=== PATIENT | female | born 1940 | race Caucasian/White ===

== ENCOUNTER 2016-10-19 13:10 | Inpatient (IN) ==
--- NOTE | 2016-10-19 13:19 | Emergency Department Note ---
Disposition Clinical Impression: Hypoxemia, Frail elderly, History of pulmonary embolus (PE), Anemia, Dyspnea on exertion, Hiatal hernia, Abnormal chest CT, History of breast cancer Disposition: Admitted As Inpatient Referrals: Augie Ramirez MD [Primary Care Provider] - Forms: ED Satisfaction Letter General Adult HPI - General Chief complaint: ED Shortness of Breath/Dyspnea Stated complaint: Weak / Low O2 Saturation Time Seen by Provider: 10/19/16 13:19 - History of Present Illness HPI Narrative: 76-year-old female reports emergency department complaining of shortness of breath. She usually requires 2 L of oxygen at home to maintain an oxygen saturation in the high 80s. She reports her oxygen saturation is been down in the 70s. On arrival to the ED her oxygen saturation was 79% on her usual 2 L requirement. The patient reports weakness and progressive dyspnea, she is also describing recurrent chest pain. She states she was recently on the hospital and had a stress test which she tells me was negative. She also states there was some consideration for heart catheter at some point. The patient has no known history of CAD, she denies any lung problems. She reports her oxygen levels are low chronically but much worse now, she has a history of malignancy and asthma. She has had a chronic cough. No coughing of blood. No leg swelling or pain or syncope. She has a remote history of PE status post hysterectomy, she was previously anticoagulated but is currently not anticoagulated. There is no history of vomiting diarrhea abdominal pain confusion or any trouble walking talking hearing seeing or speaking. No fevers rashes or urinary symptoms. There is no history of acute back pain. The patient describes progressive shortness of breath, she has recurrent chest pain as well is not well defined. There is no history of radiating pain to the jaws or arms. - Related Data Home Medications Medication Instructions Recorded Confirmed Albuterol Sulfate [Proair Hfa] 2 puff IH Q4H PRN 10/05/16 10/19/16 Aspirin 81 mg PO DAILY 10/05/16 10/19/16 Cholecalciferol (Vitamin D3) 5,000 unit PO DAILY 10/05/16 10/19/16 [Vitamin D3] Isosorbide MONOnitrate (24 HR) 30 mg PO DAILY 10/05/16 10/19/16 [Imdur] Levothyroxine Sodium [Levoxyl] 150 mcg PO QAM 05/25/17 06/08/17 Metoprolol XL (24 HR) Succ [Toprol 25 mg PO DAILY 10/05/16 10/19/16 XL] Oxygen 2 l NS CONT 10/19/16 10/19/16 Allergies Allergy/AdvReac Type Severity Reaction Status Date / Time promethazine Allergy See Verified 09/29/15 13:23 Comments All systems ED: reviewed and negative except as stated. Past Medical History - Past Medical History Medical history: Reports: arthritis, asthma, cancer, GERD, kidney stones, thyroid disease Surgical history: Reports: breast surgery, hysterectomy - Social History Smoking Status: Never smoker Smokeless Tobacco Status: No Alcohol use: Reports: none Drug use: Reports: none Physical Exam - General Limitations: no limitations General appearance: alert, in no apparent distress - Head Head exam: atraumatic, normocephalic, normal inspection - Eye Eye exam: Present: normal appearance, PERRL, EOMI - ENT ENT exam: normal exam, normal oropharynx, mucous membranes moist - Neck Neck exam: Present: normal inspection, full ROM, trachea midline - Chest Chest inspection: Present: symmetric chest wall rise. Absent: tenderness - Respiratory Respiratory exam: Present: normal lung sounds bilaterally. Absent: respiratory distress, wheezes, stridor, accessory muscle use, prolonged expiratory phase - Cardiovascular Cardiovascular exam: Present: regular rate, normal rhythm, normal heart sounds - Abdominal Exam Abdominal exam: Present: soft, Non-Tender, normal bowel sounds. Absent: tenderness, distention, guarding, rebound, rigidity, pulsatile mass - Rectal Exam Waste Oil Pumper present during exam: Yes Rectal exam: Present: normal rectal tone, black stool, hemorrhoids - Extremities Exam Extremities exam: Present: normal inspection, full ROM, normal capillary refill. Absent: tenderness, pedal edema, joint swelling, calf tenderness - Expanded Lower Extremity Exam Lower leg exam: Absent: Homans' sign Neurovascular/Tendon exam: Present: normal capillary refill. Absent: pulse deficit, motor deficit, sensory deficit, tendon deficit, extremity cold to touch , pallor - Back Exam Back exam: Present: normal inspection, full ROM. Absent: tenderness, CVA tenderness (R), CVA tenderness (L), vertebral tenderness - Neurological Exam Neurological exam: Present: alert, oriented X3, CN II-XII intact. Absent: motor sensory deficit - Psychiatric Psychiatric exam: Present: normal affect, normal mood - Skin Skin exam: Present: warm, dry, intact, normal color. Absent: rash, cyanosis, diaphoresis, erythema, pallor, mottled Course Vital Signs Temperature 97.8 F 10/19/16 13:16 Pulse Rate 89 10/19/16 13:16 Respiratory Rate 22 10/19/16 13:16 Blood Pressure 146/58 10/19/16 13:16 O2 Sat by Pulse Oximetry 100 10/19/16 13:16 Temperature 97.8 F 10/19/16 13:16 Pulse Rate 74 10/19/16 16:02 Respiratory Rate 18 10/19/16 16:02 Blood Pressure 125/53 10/19/16 16:02 O2 Sat by Pulse Oximetry 96 10/19/16 16:02 Oxygen Delivery Oxygen Delivery Nasal Cannula Medical Decision Making - [facility] Narrative Medical decision making narrative: The patient is elderly, dyspneic on exertion, with hypoxemia on 2 L at 79%, her hemoglobin is noted to be 3.9, rectal exam showed black material but the lab reports a negative Hemoccult. Protonix was given IV, transfusion was ordered. The patient appears to be stable. Based on her age, significant lab abnormality /hemoglobin 3.9, dyspnea and hypoxemia, I thought it would be appropriate to admit the patient hospital. Her lactic acid is negative. She does not have a fever or an elevated white count. Her chest CT shows changes which could be atelectatic versus infectious. Blood cultures were sent. Levaquin was ordered. Aspirin was initially ordered. The patient has a history of PE, she had describes some intermittent chest pain which has not radiated to the jaw or neck.. Her recent stress test appeared to show an abnormality, her EKG and cardiac enzymes are nonacute. She has not complained of chest pain in the ED. The patient appears to be stable. I discussed the case with the hospitalist who has accepted the patient to their care. A second CBC was ordered to evaluate hemoglobin status, recheck. The patient is not tachycardic or hypotensive and appears to be stable. - Lab Data Lab results reviewed: Yes I reviewed the patient's lab results. Result diagrams: 10/19/16 13:53 10/19/16 13:53 Lab Results 10/19/16 10/19/16 10/19/16 Range/Units 13:53 13:53 13:53 WBC 7.5 (4.3-11.1) K/mcL RBC 2.24 L (3.82-4.97) M/mcL Hgb 3.9 L* (11.5-15.4) g/dL Hct 15.0 L* (35.3-44.9) % MCV 67.0 L (83.0-100.0) fL MCH 17.4 L (28.0-33.3) pg MCHC 26.0 L (31.6-35.5) g/dL RDW 22.6 H (11.5-14.5) % Plt Count 253 (140-400) K/mcL MPV 10.6 (9.4-12.4) fL Seg Neutrophils % 88.0 % Band Neutrophils % 2.0 (0-4) % Lymphocytes % 6.0 % Monocytes % 4.0 % Neutrophils # 6.8 (1.6-8.9) K/mcL Lymphocytes # 0.5 L (0.6-4.6) K/mcL Monocytes # 0.3 (0.0-1.3) K/mcL Nucleated RBCs/100 WBC 0.3 H (0) /100 WBC Platelet Estimate Normal (Normal) Polychromasia 1+ A (Not Present) Hypochromasia Present A (Not Present) Anisocytosis 2+ A (Not Present) Microcytosis Present A (Not Present) PT (9.4-12.1) Seconds INR APTT (26.0-36.0) Seconds Sodium 141 (136-145) mEq/L Potassium 4.6 H (3.5-4.5) mEq/L Chloride 104 (98-109) mEq/L Carbon Dioxide 33 H (19-29) mEq/L BUN 21 H (7-20) mg/dL Creatinine 0.83 (0.57-1.11) mg/dL Est GFR ( Amer) > 60 (> 60) Est GFR (Non-Af Amer) > 60 (> 60) BUN/Creatinine Ratio 25 (6-26) Glucose 107 H (70-99) mg/dL Calculated Osmolality 295 (280-300) Lactic Acid 1.1 (0.5-2.2) mmol/L Calcium 8.5 L (8.6-10.8) mg/dL Total Bilirubin 0.4 (0.2-1.2) mg/dL Direct Bilirubin 0.2 (0.0-0.5) mg/dL Indirect Bilirubin 0.2 (0.0-1.2) mg/dL AST 12 (5-34) Units/L ALT 8 (0-55) Units/L Alkaline Phosphatase 74 (38-126) Units/L Troponin I (0-0.03) ng/mL C-Reactive Protein 9 H (Less than 5) mg/L B-Natriuretic Peptide (0-100) pg/mL Serum Total Protein 6.4 (6.0-8.3) g/dL Albumin 3.1 L (3.5-5.0) g/dL Globulin 3.3 (2.4-3.5) g/dL Albumin/Globulin Ratio 0.9 L (1.1-2.2) Stool Occult Blood (Negative) 10/19/16 10/19/16 10/19/16 Range/Units 13:53 13:53 15:17 WBC (4.3-11.1) K/mcL RBC (3.82-4.97) M/mcL Hgb (11.5-15.4) g/dL Hct (35.3-44.9) % MCV (83.0-100.0) fL MCH (28.0-33.3) pg MCHC (31.6-35.5) g/dL RDW (11.5-14.5) % Plt Count (140-400) K/mcL MPV (9.4-12.4) fL Seg Neutrophils % % Band Neutrophils % (0-4) % Lymphocytes % % Monocytes % % Neutrophils # (1.6-8.9) K/mcL Lymphocytes # (0.6-4.6) K/mcL Monocytes # (0.0-1.3) K/mcL Nucleated RBCs/100 WBC (0) /100 WBC Platelet Estimate (Normal) Polychromasia (Not Present) Hypochromasia (Not Present) Anisocytosis (Not Present) Microcytosis (Not Present) PT (9.4-12.1) Seconds INR APTT (26.0-36.0) Seconds Sodium (136-145) mEq/L Potassium (3.5-4.5) mEq/L Chloride (98-109) mEq/L Carbon Dioxide (19-29) mEq/L BUN (7-20) mg/dL Creatinine (0.57-1.11) mg/dL Est GFR ( Amer) (> 60) Est GFR (Non-Af Amer) (> 60) BUN/Creatinine Ratio (6-26) Glucose (70-99) mg/dL Calculated Osmolality (280-300) Lactic Acid (0.5-2.2) mmol/L Calcium (8.6-10.8) mg/dL Total Bilirubin (0.2-1.2) mg/dL Direct Bilirubin (0.0-0.5) mg/dL Indirect Bilirubin (0.0-1.2) mg/dL AST (5-34) Units/L ALT (0-55) Units/L Alkaline Phosphatase (38-126) Units/L Troponin I 0.00 (0-0.03) ng/mL C-Reactive Protein (Less than 5) mg/L B-Natriuretic Peptide 168 H (0-100) pg/mL Serum Total Protein (6.0-8.3) g/dL Albumin (3.5-5.0) g/dL Globulin (2.4-3.5) g/dL Albumin/Globulin Ratio (1.1-2.2) Stool Occult Blood Negative (Negative) 10/19/16 Range/Units 15:46 WBC (4.3-11.1) K/mcL RBC (3.82-4.97) M/mcL Hgb (11.5-15.4) g/dL Hct (35.3-44.9) % MCV (83.0-100.0) fL MCH (28.0-33.3) pg MCHC (31.6-35.5) g/dL RDW (11.5-14.5) % Plt Count (140-400) K/mcL MPV (9.4-12.4) fL Seg Neutrophils % % Band Neutrophils % (0-4) % Lymphocytes % % Monocytes % % Neutrophils # (1.6-8.9) K/mcL Lymphocytes # (0.6-4.6) K/mcL Monocytes # (0.0-1.3) K/mcL Nucleated RBCs/100 WBC (0) /100 WBC Platelet Estimate (Normal) Polychromasia (Not Present) Hypochromasia (Not Present) Anisocytosis (Not Present) Microcytosis (Not Present) PT 14.3 H (9.4-12.1) Seconds INR 1.3 APTT 27.9 (26.0-36.0) Seconds Sodium (136-145) mEq/L Potassium (3.5-4.5) mEq/L Chloride (98-109) mEq/L Carbon Dioxide (19-29) mEq/L BUN (7-20) mg/dL Creatinine (0.57-1.11) mg/dL Est GFR ( Amer) (> 60) Est GFR (Non-Af Amer) (> 60) BUN/Creatinine Ratio (6-26) Glucose (70-99) mg/dL Calculated Osmolality (280-300) Lactic Acid (0.5-2.2) mmol/L Calcium (8.6-10.8) mg/dL Total Bilirubin (0.2-1.2) mg/dL Direct Bilirubin (0.0-0.5) mg/dL Indirect Bilirubin (0.0-1.2) mg/dL AST (5-34) Units/L ALT (0-55) Units/L Alkaline Phosphatase (38-126) Units/L Troponin I (0-0.03) ng/mL C-Reactive Protein (Less than 5) mg/L B-Natriuretic Peptide (0-100) pg/mL Serum Total Protein (6.0-8.3) g/dL Albumin (3.5-5.0) g/dL Globulin (2.4-3.5) g/dL Albumin/Globulin Ratio (1.1-2.2) Stool Occult Blood (Negative) - Radiology Data Radiology results reviewed: Yes I reviewed the patient's radiology results.
[2016-10-19 14:04] LABS: Nucleated Red Blood Cells 0.3 /100 WBC (0); Red Cell Distribution Width 22.6 % (11.5-14.5)
[2016-10-19 14:05] LABS: Mean Corpuscular Hemoglobin 17.4 pg (28.0-33.3); Mean Platelet Volume 10.6 fL (9.4-12.4); Platelet Count 253 K/mcL (140-400); Red Blood Count 2.24 M/mcL (3.82-4.97)
[2016-10-19 14:29] LABS: Alanine Aminotransferase 8 Units/L (0-55); Albumin 3.1 g/dL (3.5-5.0); Albumin/Globulin Ratio 0.9 (1.1-2.2); Alkaline Phosphatase 74 Units/L (38-126); Aspartate Amino Transferase 12 Units/L (5-34); BUN/Creatinine Ratio 25 (6-26); Bilirubin,Direct 0.2 mg/dL (0.0-0.5); Bilirubin,Indirect 0.2 mg/dL (0.0-1.2); Bilirubin,Total 0.4 mg/dL (0.2-1.2); Blood Urea Nitrogen 21 mg/dL (7-20); Calcium 8.5 mg/dL (8.6-10.8); Carbon Dioxide 33 mEq/L (19-29); Chloride 104 mEq/L (98-109); Globulin 3.3 g/dL (2.4-3.5); Glucose 107 mg/dL (70-99); Osmolality,Calculated 295 (280-300); Sodium 141 mEq/L (136-145); Total Protein 6.4 g/dL (6.0-8.3); eGFR For African Americans > 60 (> 60); eGFR For Non-African Americans > 60 (> 60)
[2016-10-19 14:31] LABS: Potassium 4.6 mEq/L (3.5-4.5)
[2016-10-19] MEDS ORDERED: Aspirin 325 MG TABLET PO ONE (14:32)
[2016-10-19 14:46] LABS: Hemoglobin 3.9 g/dL (11.5-15.4)
[2016-10-19] MEDS ORDERED: Pantoprazole 40 MG VIAL IVP ONE (15:17)
[2016-10-19 15:30] LABS: C-Reactive Protein 9 mg/L (Less than 5)
[2016-10-19 15:43] LABS: Lymphocytes # 0.5 K/mcL (0.6-4.6); Monocytes # 0.3 K/mcL (0.0-1.3); Neutrophils # 6.8 K/mcL (1.6-8.9)
[2016-10-19 15:44] LABS: Anisocytosis 2+ (Not Present); Hypochromasia Present (Not Present); Microcytosis Present (Not Present); Platelet Estimate Normal (Normal)
[2016-10-19 15:45] LABS: Polychromasia 1+ (Not Present)
[2016-10-19 16:01] LABS: INR 1.3; Prothrombin Time 14.3 Seconds (9.4-12.1)
[2016-10-19] MEDS: Pantoprazole 40 MG in 0.9 % Sodium Chloride Mini Bag 100 ML IVC SCH ×2 (16:01→21:05)
[2016-10-19] MEDS ORDERED: Levofloxacin 750 MG/150 ML 750 MG/150 ML BAG IVPB ONE (16:02)
[2016-10-19 16:04] LABS: Activated Partial Thrombo Time 27.9 Seconds (26.0-36.0)
--- NOTE | 2016-10-19 16:50 | Electrocardiograph Report ---
[facility] Test Date: 2016-10-19 Pat Name: Janis Hernandez Department: 104 Room: 2N03 Gender: F Radiology Scheduler: DARRIAN : 1940 Requested By: Angel White Order Number: [id number] Reading MD: Augie Ramirez MD Measurements Intervals [place] Rate: 73 P: 58 NM: 133 QRS: 3 QRSD: 85 T: 26 QT: 383 QTc: 409 Interpretive Statements SINUS RHYTHM Electronically Signed On 10-19-2016 16:48:22 EDT by Augie Ramirez MD
[2016-10-19 16:53] LABS: Hematocrit 15.1 % (35.3-44.9); Immature Reticulocyte % 5.3 % (11.0-38.0); Mean Corpuscular HGB Conc 25.2 g/dL (31.6-35.5); Mean Corpuscular Hemoglobin 16.7 pg (28.0-33.3); Mean Corpuscular Volume 66.5 fL (83.0-100.0); Mean Platelet Volume 10.3 fL (9.4-12.4); Platelet Count 238 K/mcL (140-400); Red Blood Count 2.27 M/mcL (3.82-4.97); Red Cell Distribution Width 22.7 % (11.5-14.5); Retculocyte # 0.04 M/mcL (0.05-0.10); Reticulocyte % 1.9 % (1.6-2.8)
[2016-10-19 16:57] LABS: Hemoglobin 3.8 g/dL (11.5-15.4)
[2016-10-19] MEDS ORDERED: 0.9 % Sodium Chloride 250 ML ONE (17:26)
[2016-10-19 17:40] LABS: Folate 15.8 ng/mL (7.0-31.4)
[2016-10-19] MEDS ORDERED: Naloxone 0.4 MG/ML INJ IVP PRN (19:46)
--- NOTE | 2016-10-19 19:59 | Internal Med History&Physical ---
Date of Encounter: 10/19/16 Time of Encounter: 19:57 Assessment and Plan (1) Blood loss anemia Current visit: Yes Status: Acute Hgb 3.9 on arrival. She does report melena for 3 weeks prior to admission. Occult stool negative. Hemodynamically stable no tachycardia no hypertension maintaining mentation. Receive 1 unit PRBC in the ED. No CAD. We will transfuse a total of 4 units. Monitor H&H and transfuse for Hgb less than 7. Clear liquid diets, IV PPI. Iron studies, LDH, Hannah test, retic count, B12 and folate pending. (2) Chronic respiratory failure Current visit: Yes Status: Acute Wears O2 at home. Is in the process of outpatient workup. Presented with shortness of breath that worsened on day of admission. Chest CTA negative chest x-ray nonacute. Suspect component of COPD however no evidence of exacerbation. Also anemia likely contributing to his well. Continue home O2, aggressive I-S, wean as able. Can follow up as outpatient as previously planned. Qualifiers: Respiratory failure complication: hypoxia Qualified Code(s): J96.11 - Chronic respiratory failure with hypoxia (3) Essential hypertension Current visit: Yes Status: Acute Per history. BP soft/borderline. Holding home BP medications. Resume when able. (4) DVT prophylaxis Current visit: Yes Status: Acute SCD Internal Medicine - H&P: HPI Chief complaint: Shortness of breath Admitted From: Home History of present illness: Ms. Hernandez is a 76 year old female with past medical history hypertension and chronic respiratory failure on O2 at home who presented to [facility] on 10/19/2016 with complaints of shortness of breath. She was found to be hypoxic with saturations at 79% while on O2. She was also found to be anemic with Hgb 3.9. She was admitted for blood transfusion and GI consultation. Information obtained from chart review and patient report per patient she has been short of breath for the past couple months now requiring O2. Says she woke up this morning was more short of breath about palpitations. She has noticed dark stools over the past couple weeks but that this is related to her heart medication. Still with some shortness of breath all my exam but says she feels better. No chest pain no abdominal pain and nausea vomiting or diarrhea. Denies EtOH use no NSAID use no recent use of steroids. Past Med Surg Social Fam HX - Past Medical History Medical history: arthritis, asthma, cancer, GERD, kidney stones, thyroid disease - Past Surgical History Surgical History: breast surgery, hysterectomy - Social History Smoking Status: Never smoker Smokeless Tobacco Status: No Alcohol use: none Drug use: none Internal Medicine - H&P: Meds Albuterol Sulfate [Proair Hfa] 2 puff IH Q4H PRN 10/05/16 [History] Aspirin 81 mg PO DAILY 10/05/16 [History] Cholecalciferol (Vitamin D3) [Vitamin D3] 5,000 unit PO DAILY 10/05/16 [History] Isosorbide MONOnitrate (24 HR) [Imdur] 30 mg PO DAILY 10/05/16 [History] Levothyroxine Sodium [Levoxyl] 150 mcg PO QAM 10/05/16 [History] Metoprolol XL (24 HR) Succ [Toprol XL] 25 mg PO DAILY 10/05/16 [History] Oxygen 2 l NS CONT 10/19/16 [History] Allergies promethazine Allergy (Verified 09/29/15 13:23) See Comments unknown All Systems PM: A 10-system review of systems was performed and is negative for pertinent findings except as documented above in the HPI. - Constitutional Constitutional: no chills, no fever(s), no night sweats - EENT Eyes: no change in vision, no discharge, no pain, no photophobia Ears: no ear discharge, no ear pain, no tinnitus Nose, mouth and throat: no dysphagia, no nasal discharge, no neck pain, no sore throat - Cardiovascular Cardiovascular ROS IM: no chest pain, no diaphoresis, no dyspnea, no lightheadedness, no palpitations, no syncope - Respiratory Respiratory: dyspnea on exertion, no cough, no dyspnea, no wheezing, no excessive phlegm production - Gastrointestinal Gastrointestinal: melena, no abdominal pain, no diarrhea, no hematemesis, no hematochezia, no nausea, no vomiting - Genitourinary Genitourinary: no change in urinary stream, no dysuria, no flank pain, no hematuria - Musculoskeletal Musculoskeletal ROS IM: no numbness, no tingling - Integumentary Integumentary IM: no rash, no unusual bruising - Neurological Neurological ROS: no confusion, no convulsions, no focal weakness, no numbness, no tingling, no tremor(s) - Hematologic/Lymphatic Hematologic/Lymphatic: no easy bruising - Constitutional Vitals: Temp Pulse Resp BP Pulse Ox 98.5 F 73 18 125/46 96 10/19/16 18:09 10/19/16 19:54 10/19/16 19:54 10/19/16 19:54 10/19/16 19:54 - Head Head exam: Present: atraumatic, normocephalic - Eye Eye exam: Present: PERRL, conjuntiva pink, sclera anicteric Pupils: Present: PERRL - Neck Neck exam general surgery: Present: supple, trachea midline. Absent: lymphadenopathy - Respiratory Respiratory exam: Present: CTAB. Absent: accessory muscle use, rales, rhonchi, wheezes - Cardiovascular Cardiovascular exam: Present: RRR, +S1, +S2. Absent: diastolic murmur, gallop, rubs, systolic murmur - GI/Abdominal GI/Abdominal exam: Present: normal bowel sounds, soft, no peritoneal signs. Absent: distended, tenderness - Extremities Exam Extremities exam: Present: warm, radial pulses palpable and symetrical. Absent : calf tenderness, cyanotic, pedal edema - Neurological Exam Neurological exam: Present: CN II-XII intact, oriented X3, no focal deficits. Absent: pronater drift, facial droop, speech deficit - Skin Skin exam: Present: dry, intact Internal Med - H&P Results - Labs CBC & Chem 7: 10/19/16 16:43 10/19/16 13:53 Labs: Short CBC 10/19/16 Range/Units 16:43 WBC 6.8 (4.3-11.1) K/mcL Hgb 3.8 L* (11.5-15.4) g/dL Hct 15.1 L (35.3-44.9) % Plt Count 238 (140-400) K/mcL
[2016-10-19 22:46] LABS: Bilirubin,Urine Negative (Negative); Blood,Urine Negative (Negative); Clarity,Urine Clear (Clear); Color,Urine Yellow (Yellow); Glucose,Urine (UA) Normal (Normal); Ketones,Urine Negative (Negative); Leukocyte Esterase,Urine Trace (Negative); Nitrite,Urine Positive (Negative); Protein,Urine Negative (Neg-Trace); Specific Gravity,Urine 1.015 (1.010-1.025); Urobilinogen,Urine Normal (Normal)
[2016-10-19 22:54] LABS: Squamous Epithelial Cell,Urine Few per lpf (None-Few)
[2016-10-19 22:56] LABS: Bacteria,Urine Many per hpf (None-Few)
[2016-10-20] MEDS: Pantoprazole 40 MG in 0.9 % Sodium Chloride Mini Bag 100 ML IVC SCH ×6 (02:30→22:15)
[2016-10-20 03:03] LABS: Thyroid Stimulating Hormone 10.046 mcIU/mL (0.350-4.840)
--- NOTE | 2016-10-20 08:31 | Gastroenterology Consult Note ---
<Kristen York - Last Filed: 10/20/16 10:34> Date of Encounter: 10/20/16 Time of Encounter: 10:07 - Assessment and plan (1) Melena Current Visit: Yes Status: Acute Assessment and plan: EGD today to r/o esophagitis, gastritis, duodenitis, PUD, MW tear, tumor, polyp , AVMs, varices. (2) Anemia Current Visit: Yes Status: Acute Assessment and plan: Monitor and transfuse as appropriate. INR 1.3, currently hgb 3.8, will delroy as she has received 3 units PRBC. Qualifiers: Anemia type: iron deficiency Iron deficiency anemia type: unspecified iron deficiency Qualified Code(s): D50.9 - Iron deficiency anemia, unspecified (3) Chronic respiratory failure Current Visit: Yes Status: Chronic Assessment and plan: Oxygen dependent Qualifiers: Respiratory failure complication: hypoxia Qualified Code(s): J96.11 - Chronic respiratory failure with hypoxia - Time Spent With Patient Total time spent is greater than 50% in coordination of care (as documented) at patient's floor/unit and/or counseling patient: less than 15 minutes GI History of Present Illness - Data of Consult Patient: new to practice Consult date: 10/20/16 Requesting Physician: Eder Bhardwaj - Consult Narrative Reason for consult: Melena History of present illness: Ms. Hernandez is a 76 year old female with a PMH significant for HTN and chronic respiratory failure, oxygen dependent 2L. She presented to [facility] on 10/19/2016 with complaints of shortness of breath. She was found to be hypoxic with saturations at 79% while on O2. She was also found to be anemic with Hgb 3.9. She was admitted for blood transfusion and GI consultation. Information obtained from chart review and patient report per patient she has been short of breath for the past couple months now requiring O2. Says she woke up this morning was more short of breath about palpitations. She has noticed dark stools over the past couple weeks but that this is related to her heart medication. Still with some shortness of breath all my exam but says she feels better. Denies EtOH use no NSAID use no recent use of steroids. Hemoccult testing was negative. Patient reports daily BM, for a couple of weeks very dark in color, denies BRBPR. Some nausea, no vomiting. Denies abdominal pain. Her biggest presenting symptom was dyspnea. Colonoscopy: 11/2015 - [facility] - diverticulosis EGD: 11/2015 - [facility] - large hiatal hernia Past Med Surg Social Fam HX - Past Medical History Medical history: arthritis, asthma, cancer, GERD, kidney stones, thyroid disease - Past Surgical History Surgical History: breast surgery, hysterectomy - Social History Smoking Status: Never smoker Smokeless Tobacco Status: No Alcohol use: none Drug use: none - Gastrointestinal NSAID use: asa Anticoagulation Use: None Number of BM Per Day: 1 Gastrointestinal: Present: melena, nausea - Constitutional Constitutional: fatigue - EENT Eyes: as per HPI Ears: Present: as per HPI Nose, mouth and throat: Present: as per HPI - Cardiovascular Cardiovascular ROS: Present: as per HPI - Respiratory Respiratory IM: Present: dyspnea - Neurological ROS Neurological GI: Present: weakness - Hematologic/Lymphatic Hematologic/Lymphatic pediatric: Present: as per HPI - Musculoskeletal Musculoskeletal ROS GI: Present: as per HPI - Integumentary Integumentary GI: Present: jaundice, as per HPI - Psychiatric ROS Psychiatric GI: Present: as per HPI - Endocrine Endocrine IM: Present: as per HPI - Constitutional Vitals: Temp Pulse Resp BP Pulse Ox 98.0 F 68 17 115/48 93 10/20/16 07:15 10/20/16 07:15 10/20/16 07:15 10/20/16 07:15 10/20/16 07:15 General appearance: Present: cooperative, A&O X 3, no acute distress, answers questions appropriately - Head Head exam: Present: atraumatic, normocephalic - Eye Eye exam: Present: normal appearance, sclera anicteric - ENT ENT exam: Present: mucous membranes moist - Neck Neck exam general surgery: Present: normal inspection, trachea midline - Respiratory Respiratory exam: Present: CTAB - Cardiovascular Cardiovascular exam: Present: RRR, +S1, +S2 - GI/Abdominal GI/Abdominal exam: Present: normal bowel sounds, soft, no peritoneal signs - Rectal Rectal exam: Present: deferred - Extremities Exam Extremities exam: Present: warm - Neurological Exam Neurological exam: Present: no focal deficits - Psychiatric Psychiatric exam: Present: normal affect, normal mood - Skin Skin exam: Present: dry, intact, normal color, warm Results - Labs CBC & Chem 7: 10/20/16 08:39 10/20/16 08:39 Labs: Last Result Calcium 8.5 mg/dL (8.6-10.8) L 10/19/16 13:53 Iron 12 mcg/dL (50-170) L 10/19/16 13:53 % Saturation 2 % (15-50) L 10/19/16 13:53 Transferrin 353 mg/dL (180-382) 10/19/16 13:53 Ferritin 5 ng/ml (5-204) 10/19/16 13:53 Troponin I 0.00 ng/mL (0-0.03) 10/19/16 13:53 C-Reactive Protein 9 mg/L (Less than 5) H 10/19/16 13:53 Vitamin B12 344 pg/mL (213-816) 10/19/16 16:43 Folate 15.8 ng/mL (7.0-31.4) 10/19/16 16:43 Stool Occult Blood Negative (Negative) 10/19/16 15:17 Entire Visit Hgb 3.8 g/dL (11.5-15.4) L* 10/19/16 16:43 Hct 15.1 % (35.3-44.9) L 10/19/16 16:43 PT 14.3 Seconds (9.4-12.1) H 10/19/16 15:46 Ferritin 5 ng/ml (5-204) 10/19/16 13:53 Total Bilirubin 0.4 mg/dL (0.2-1.2) 10/19/16 13:53 AST 12 Units/L (5-34) 10/19/16 13:53 ALT 8 Units/L (0-55) 10/19/16 13:53 Folate 15.8 ng/mL (7.0-31.4) 10/19/16 16:43 - ABG ABG results: PT/INR, D-dimer PT 14.3 Seconds (9.4-12.1) H 10/19/16 15:46 Consult Discharge Plan - Plan Referrals: Augie Ramirez MD [Primary Care Provider] - <Angel Arizmendi - Last Filed: 10/20/16 12:50> Date of Encounter: 10/20/16 Time of Encounter: 11:00 - Time Spent With Patient Total time spent is greater than 50% in coordination of care (as documented) at patient's floor/unit and/or counseling patient: GI History of Present Illness - Data of Consult Requesting Physician: Eder Bhardwaj - Consult Narrative History of present illness: Ms. Hernandez is a 76 year old female - Constitutional Vitals: Temp Pulse Resp BP Pulse Ox 97.7 F 69 18 124/79 97 10/20/16 12:10 10/20/16 12:10 10/20/16 12:10 10/20/16 12:10 10/20/16 12:10 Results - Labs CBC & Chem 7: 10/20/16 08:39 10/20/16 08:39 Labs: Last Result Calcium 8.3 mg/dL (8.6-10.8) L 10/20/16 08:39 Iron 12 mcg/dL (50-170) L 10/19/16 13:53 % Saturation 2 % (15-50) L 10/19/16 13:53 Transferrin 353 mg/dL (180-382) 10/19/16 13:53 Ferritin 5 ng/ml (5-204) 10/19/16 13:53 Troponin I 0.00 ng/mL (0-0.03) 10/19/16 13:53 C-Reactive Protein 9 mg/L (Less than 5) H 10/19/16 13:53 Vitamin B12 344 pg/mL (213-816) 10/19/16 16:43 Folate 15.8 ng/mL (7.0-31.4) 10/19/16 16:43 Stool Occult Blood Negative (Negative) 10/19/16 15:17 Entire Visit Hgb 6.4 g/dL (11.5-15.4) L D 10/20/16 08:39 Hct 22.3 % (35.3-44.9) L 10/20/16 08:39 PT 14.3 Seconds (9.4-12.1) H 10/19/16 15:46 Ferritin 5 ng/ml (5-204) 10/19/16 13:53 Total Bilirubin 1.1 mg/dL (0.2-1.2) D 10/20/16 08:39 AST 13 Units/L (5-34) 10/20/16 08:39 ALT 8 Units/L (0-55) 10/20/16 08:39 Folate 15.8 ng/mL (7.0-31.4) 10/19/16 16:43 - ABG ABG results: PT/INR, D-dimer PT 14.3 Seconds (9.4-12.1) H 10/19/16 15:46 - Attending Attestation I examined this patient and my medical decision-making was reviewed with the INTERIOR DESIGN DIRECTOR/PA/Advanced Practice Nurse/Resident Physician. I agree with the documented findings, disposition and treatment plan as described except to the extent set forth below.
[2016-10-20 09:03] LABS: Nucleated Red Blood Cells 0.5 /100 WBC (0)
[2016-10-20] MEDS: Iron Polysaccharide Complex 150 MG CAPSULE PO SCH (09:04)
[2016-10-20 09:05] LABS: Basophils % 0.5 %; Eosinophils # 0.1 K/mcL (0.0-0.6); Eosinophils % 1.3 %; Hematocrit 22.3 % (35.3-44.9); Immature Granulocytes % 1.4 % (0-4); Lymphocytes # 0.7 K/mcL (0.6-4.6); Lymphocytes % 10.5 %; Mean Corpuscular HGB Conc 28.7 g/dL (31.6-35.5); Mean Corpuscular Hemoglobin 20.8 pg (28.0-33.3); Mean Platelet Volume 10.5 fL (9.4-12.4); Monocytes # 0.6 K/mcL (0.0-1.3); Neutrophils # 4.8 K/mcL (1.6-8.9); Platelet Count 192 K/mcL (140-400); Red Blood Count 3.07 M/mcL (3.82-4.97); Red Cell Distribution Width 23.9 % (11.5-14.5); Segmented Neutrophils % 76.3 %
[2016-10-20] MEDS: 0.9 % Sodium Chloride 250 ML IVC SCH ×2 (09:05→12:15)
[2016-10-20 09:07] LABS: Hemoglobin 6.4 g/dL (11.5-15.4); Mean Corpuscular Volume 72.6 fL (83.0-100.0)
[2016-10-20 09:17] LABS: Alanine Aminotransferase 8 Units/L (0-55); Albumin 2.9 g/dL (3.5-5.0); Alkaline Phosphatase 74 Units/L (38-126); Aspartate Amino Transferase 13 Units/L (5-34); BUN/Creatinine Ratio 17 (6-26); Blood Urea Nitrogen 13 mg/dL (7-20); Calcium 8.3 mg/dL (8.6-10.8); Carbon Dioxide 32 mEq/L (19-29); Chloride 104 mEq/L (98-109); Glucose 100 mg/dL (70-99); Osmolality,Calculated 290 (280-300); Potassium 4.3 mEq/L (3.5-4.5); Sodium 140 mEq/L (136-145); Total Protein 5.9 g/dL (6.0-8.3); eGFR For African Americans > 60 (> 60); eGFR For Non-African Americans > 60 (> 60)
[2016-10-20 09:21] LABS: Bilirubin,Total 1.1 mg/dL (0.2-1.2)
[2016-10-20 09:28] LABS: Anisocytosis 3+ (Not Present); Hypochromasia Present (Not Present); Microcytosis Present (Not Present); Platelet Estimate Normal (Normal)
--- NOTE | 2016-10-20 10:41 | Internal Med Progress Note ---
Date of Encounter: 10/20/16 Time of Encounter: 09:00 - Assessment and plan (1) Blood loss anemia Current Visit: Yes Status: Acute Assessment and plan: Patient has chronic iron deficiency anemia. Presents with black tarry stools. Likely GI bleed. GI has evaluated patient and scheduled for EGD. 4 units of packed red cells and transfused. H&H has improved now. Continue pantoprazole IV. (2) Chronic respiratory failure Current Visit: Yes Status: Chronic Assessment and plan: Patient uses home oxygen. Chronic hypoxia likely due to COPD. Outpatient workup in progress. CT chest is negative for pulmonary embolus. Continue 2 L via nasal cannula Qualifiers: Respiratory failure complication: hypoxia Qualified Code(s): J96.11 - Chronic respiratory failure with hypoxia (3) Essential hypertension Current Visit: Yes Status: Chronic Assessment and plan: Controlled at present. Continue to monitor (4) DVT prophylaxis Current Visit: Yes Status: Acute Assessment and plan: avoid anticoagulation due to severe anemia. SCDs - Time Spent With Patient 25 - 35 minutes - Subjective Interval history: Patient awake and alert. No distress. Feels better this morning. H&H has improved after transfusion. No fever. GI has evaluated the patient and EGD scheduled for today. No other acute events or complaints. - Constitutional Vitals: Temp Pulse Resp BP Pulse Ox 98.0 F 68 17 115/48 93 10/20/16 07:15 10/20/16 07:15 10/20/16 07:15 10/20/16 07:15 10/20/16 07:15 General appearance: Present: cooperative, A&O X 3, pleasant, answers questions appropriately - Head Head exam: Present: atraumatic - ENT ENT exam: Present: mucous membranes dry - Neck Neck exam general surgery: Present: supple - Respiratory Respiratory exam: Present: CTAB. Absent: rhonchi, wheezes - Cardiovascular Cardiovascular exam: Present: RRR, +S1, +S2 - GI/Abdominal GI/Abdominal exam: Present: soft. Absent: guarding, tenderness - Extremities Exam Extremities exam: Present: radial pulses palpable and symetrical. Absent: cyanotic, tenderness - Neurological Exam Neurological exam: Present: alert, oriented X3, no focal deficits Internal Medicine: Result - Labs CBC & Chem 7: 10/20/16 08:39 10/20/16 08:39 Labs: Short CBC 10/20/16 Range/Units 08:39 WBC 6.3 (4.3-11.1) K/mcL Hgb 6.4 L D (11.5-15.4) g/dL Hct 22.3 L (35.3-44.9) % Plt Count 192 (140-400) K/mcL Neutrophils # 4.8 (1.6-8.9) K/mcL BMP 10/20/16 08:39 Sodium 140 Potassium 4.3 Chloride 104 Carbon Dioxide 32 H BUN 13 Creatinine 0.77 Glucose 100 H Calcium 8.3 L Liver Function 10/20/16 Range/Units 08:39 Total Bilirubin 1.1 D (0.2-1.2) mg/dL AST 13 (5-34) Units/L ALT 8 (0-55) Units/L Alkaline Phosphatase 74 (38-126) Units/L Albumin 2.9 L (3.5-5.0) g/dL - ABG Interpretation ABG results: PT/INR, D-dimer PT 14.3 Seconds (9.4-12.1) H 10/19/16 15:46 Consult Discharge Plan - Plan Referrals: Augie Ramirez MD [Primary Care Provider] -
[2016-10-20] MEDS ORDERED: 0.9 % Sodium Chloride 250 ML ONE (11:47)
--- NOTE | 2016-10-20 12:00 | Anesthesia Evaluation PreOp ---
Date of Encounter: 10/20/16 Time of Encounter: 11:57 - Past History Planned Operation: EGD Cardiac History: HTN, Other (Anemia) Pulmonary History: Asthma, Other (Chronic Hypoxic Resp. Failure on 2L O2 at home ) [employer] History: Denies Any Significant HX Other Medical History: Renal (Stones), Thyroid (Hypothyroid), GERD Anesthesia History: Past Anesthesia (Breast Sx, LUCIANA) : No Alcohol Use: none Drug use: none Medications and Allergies Albuterol Sulfate [Proair Hfa] 2 puff IH Q4H PRN 10/05/16 [History] Aspirin 81 mg PO DAILY 10/05/16 [History] Cholecalciferol (Vitamin D3) [Vitamin D3] 5,000 unit PO DAILY 10/05/16 [History] Isosorbide MONOnitrate (24 HR) [Imdur] 30 mg PO DAILY 10/05/16 [History] Levothyroxine Sodium [Levoxyl] 150 mcg PO QAM 10/05/16 [History] Metoprolol XL (24 HR) Succ [Toprol XL] 25 mg PO DAILY 10/05/16 [History] Oxygen 2 l NS CONT 10/19/16 [History] Allergies promethazine Allergy (Verified 09/29/15 13:23) See Comments unknown - Meds/Allergy Pre-op Review Medications Reviewed: Yes Allergies Reviewed: Yes Beta Blockers on Current Med List: No Anesthesia Results - Labs 10/20/16 08:39 10/20/16 08:39 07/26/2016 Stress EF-69% Reversible defect apical, apical inf, and apical lateral region, worsens with stress 06/16/16 Echo EF-605 No valvular dx - Imaging EKG: image reviewed (SR) Anesthesia Exam O2 Sat Height 1.7 m Weight 89.8 kg Weight 88.451 kg O2 Sat by Pulse Oximetry 97 O2 Sat by Pulse Oximetry 97 O2 Sat by Pulse Oximetry 93 O2 Sat by Pulse Oximetry 100 O2 Sat by Pulse Oximetry 93 O2 Sat by Pulse Oximetry 100 O2 Sat by Pulse Oximetry 95 O2 Sat by Pulse Oximetry 95 O2 Sat by Pulse Oximetry 95 O2 Sat by Pulse Oximetry 96 O2 Sat by Pulse Oximetry 97 O2 Sat by Pulse Oximetry 96 O2 Sat by Pulse Oximetry 96 O2 Sat by Pulse Oximetry 97 O2 Sat by Pulse Oximetry 96 O2 Sat by Pulse Oximetry 100 O2 Sat by Pulse Oximetry 100 Vital Signs Temp Pulse Resp BP Pulse Ox 97.8 F 89 22 146/58 100 10/19/16 13:16 10/19/16 13:16 10/19/16 13:16 10/19/16 13:16 10/19/16 13:16 Vital Signs/O2 Sat, Most Current Temp Pulse Resp BP Pulse Ox 97.7 F 69 18 124/79 97 10/20/16 12:10 10/20/16 12:10 10/20/16 12:10 10/20/16 12:10 10/20/16 12:10 Height: 5'7'' Weight: 197# NPO (# of Hours): > 8 hrs Pain Scale: 0 Pain Scale Used: Numeric (1 - 10) - HEENT Pupil (Motor): Pupils equal, EOMI Mallampati: III Teeth: Normal Oral Opening: Greater than 3 - [employer] LOC: Oriented [employer] Motor: Normal RUE, Normal LUE, Normal RLE, Normal LLE, Normal Face [employer] Sensory: Normal: RUE, LUE, RLE, LLE, Face - Cardiac Rhythm: Regular Murmur: None JVD: No Carotid Bruit: No - Pulmonary Breath Sounds: bilateral Clear Respiratory Effort: Symmetrical Anesthesia Assess/Plan ASA Score: 3 Modified [place] Scale for Level of Consciousness: Cooperative, oriented, and tranquil Anesthetic Plan: MAC Autologous Blood: Yes Monitoring Plan: Standard Monitors Recovery Plan: Other
--- NOTE | 2016-10-20 13:17 | Anesthesia Evaluation Post Op ---
Date of Encounter: 10/20/16 Time of Encounter: 13:17 - Vital Signs Vital Signs: Vital Signs/O2 Sat/Glucose, Most Current Temp Pulse Resp BP Pulse Ox 10/20/16 12:10 97.7 F 69 18 124/79 97 10/20/16 11:55 98.6 F 71 18 117/59 10/20/16 11:23 98.6 F 71 18 117/59 97 - Lungs Lungs: Clear Ascult./Percussion - Airway Airway: Non-obstructed - Cardiovascular Regular Rate, Baseline Rhythm - Mental Status Mental Status: Alert & Oriented, Answers Appropriately - Pain Pain Scale: 0 Pain Scale used: Numeric (1 - 10) - Nausea Vomiting Nausea Vomiting: Not Present - Hydration Hydration: NPO, Has not voided - Discharge PostOp Status: Transfer Patient to floor
[2016-10-20 16:02] LABS: Hemoglobin 7.6 g/dL (11.5-15.4)
[2016-10-21] MEDS: Pantoprazole 40 MG in 0.9 % Sodium Chloride Mini Bag 100 ML IVC SCH (03:30)
[2016-10-21 03:54] LABS: BUN/Creatinine Ratio 15 (6-26); Blood Urea Nitrogen 13 mg/dL (7-20); Calcium 8.4 mg/dL (8.6-10.8); Carbon Dioxide 27 mEq/L (19-29); Chloride 104 mEq/L (98-109); Glucose 98 mg/dL (70-99); Osmolality,Calculated 294 (280-300); Sodium 142 mEq/L (136-145); eGFR For African Americans > 60 (> 60); eGFR For Non-African Americans > 60 (> 60)
[2016-10-21 04:09] LABS: Potassium 4.7 mEq/L (3.5-4.5)
[2016-10-21 04:56] LABS: Basophils % 0.1 %; Eosinophils # 0.1 K/mcL (0.0-0.6); Eosinophils % 1.3 %; Hematocrit 26.4 % (35.3-44.9); Hemoglobin 7.6 g/dL (11.5-15.4); Immature Granulocytes % 1.3 % (0-4); Lymphocytes # 0.9 K/mcL (0.6-4.6); Lymphocytes % 10.8 %; Mean Corpuscular HGB Conc 28.8 g/dL (31.6-35.5); Mean Corpuscular Hemoglobin 21.4 pg (28.0-33.3); Mean Corpuscular Volume 74.4 fL (83.0-100.0); Monocytes # 0.9 K/mcL (0.0-1.3); Monocytes % 10.4 %; Neutrophils # 6.6 K/mcL (1.6-8.9); Nucleated Red Blood Cells 0.3 /100 WBC (0); Platelet Count 191 K/mcL (140-400); Red Blood Count 3.55 M/mcL (3.82-4.97); Red Cell Distribution Width 24.7 % (11.5-14.5); Segmented Neutrophils % 76.1 %
[2016-10-21 05:05] LABS: Anisocytosis 3+ (Not Present); Microcytosis Present (Not Present)
[2016-10-21 05:06] LABS: Hypochromasia Present (Not Present); Platelet Estimate Normal (Normal)
[2016-10-21] MEDS: Iron Polysaccharide Complex 150 MG CAPSULE PO SCH (08:54)
--- NOTE | 2016-10-21 13:16 | Internal Med Progress Note ---
Date of Encounter: 10/21/16 Time of Encounter: 10:15 - Assessment and plan (1) Blood loss anemia Current Visit: Yes Status: Acute Assessment and plan: H&H is now improved and stable Patient has chronic iron deficiency anemia. Presents with black tarry stools. Likely GI bleed. GI has evaluated - EGD revealed a normal esophagus, large hiatal hernia, nonbleeding gastric ulcer and gastritis. 4 units of packed red cells and transfused. H&H has improved now. Continue Prilosec (2) UTI (urinary tract infection), bacterial Current Visit: Yes Status: Acute Assessment and plan: Urine culture positive for gram-negative rods. Empiric IV Rocephin. Awaiting culture sensitivity (3) Chronic respiratory failure Current Visit: Yes Status: Chronic Assessment and plan: Patient uses home oxygen. Chronic hypoxia likely due to COPD. Outpatient workup in progress. CT chest is negative for pulmonary embolus. Continue 2 L via nasal cannula Qualifiers: Respiratory failure complication: hypoxia Qualified Code(s): J96.11 - Chronic respiratory failure with hypoxia (4) Essential hypertension Current Visit: Yes Status: Chronic Assessment and plan: Controlled at present. Continue to monitor. (5) DVT prophylaxis Current Visit: Yes Status: Acute Assessment and plan: avoid anticoagulation due to severe anemia. SCDs. - Time Spent With Patient less than 15 minutes - Subjective Interval history: Patient awake and alert. No distress. Feels better. H&H has improved after transfusion. No fever. GI has evaluated the patient and EGD revealed normal esophagus, large hiatal hernia, nonbleeding gastric ulcer and gastritis. Urine culture shows gram-negative rods awaiting sensitivities. Empiric Rocephin started. No other acute events or complaints. Transfer to regular floor. - Constitutional Vitals: Temp Pulse Resp BP Pulse Ox 98.0 F 72 18 113/53 96 10/21/16 11:34 10/21/16 11:34 10/21/16 11:34 10/21/16 11:34 10/21/16 08:35 General appearance: Present: cooperative, A&O X 3, pleasant, answers questions appropriately - Head Head exam: Present: atraumatic - ENT ENT exam: Present: mucous membranes moist - Neck Neck exam general surgery: Present: supple - Respiratory Respiratory exam: Present: CTAB. Absent: rhonchi, wheezes - Cardiovascular Cardiovascular exam: Present: RRR, +S1, +S2 - GI/Abdominal GI/Abdominal exam: Present: soft. Absent: guarding, tenderness - Extremities Exam Extremities exam: Present: radial pulses palpable and symetrical. Absent: cyanotic, tenderness - Neurological Exam Neurological exam: Present: alert, oriented X3, no focal deficits Internal Medicine: Result - Labs CBC & Chem 7: 10/21/16 04:07 10/21/16 03:03 Labs: Short CBC 10/20/16 10/21/16 Range/Units 15:53 04:07 WBC 8.7 (4.3-11.1) K/mcL Hgb 7.6 L 7.6 L (11.5-15.4) g/dL Hct 26.0 L 26.4 L (35.3-44.9) % Plt Count 191 (140-400) K/mcL Neutrophils # 6.6 (1.6-8.9) K/mcL BMP 10/21/16 03:03 Sodium 142 Potassium 4.7 H Chloride 104 Carbon Dioxide 27 BUN 13 Creatinine 0.84 Glucose 98 Calcium 8.4 L - ABG Interpretation ABG results: PT/INR, D-dimer PT 14.3 Seconds (9.4-12.1) H 10/19/16 15:46 - VTE Documentation of Mechanical Device: Intermittent pneumatic compression device Consult Discharge Plan - Plan Referrals: Augie Ramirez MD [Primary Care Provider] - (OFFICE WILL CONTACT YOU WITH FOOLOW UP APPOINTMENT)
[2016-10-21] MEDS ORDERED: Naloxone 0.4 MG/ML INJ IVP PRN (19:20)
[2016-10-22 03:31] LABS: Hematocrit 27.3 % (35.3-44.9); Hemoglobin 7.5 g/dL (11.5-15.4)
[2016-10-22 06:54] VITALS: BP 113/67
--- NOTE | 2016-10-22 08:13 | Discharge Summary ---
Date of Encounter: 10/22/16 Time of Encounter: 08:00 - Discharge Diagnosis (1) Blood loss anemia Priority: Primary Status: Acute Comments: H&H is now improved and stable Patient has chronic iron deficiency anemia. Presents with black tarry stools. Likely GI bleed. GI has evaluated - EGD revealed a normal esophagus, large hiatal hernia, nonbleeding gastric ulcer and gastritis. 4 units of packed red cells transfused. H&H has improved now. Continue Prilosec (2) UTI (urinary tract infection), bacterial Priority: Primary Status: Acute Comments: Urine culture positive for E.coli. pansensitive. D/c home with Bactrim. (3) Chronic respiratory failure Priority: Secondary Status: Chronic Comments: Patient uses home oxygen. Chronic hypoxia likely due to COPD. Outpatient workup in progress. CT chest is negative for pulmonary embolus. Continue 2 L via nasal cannula at home Qualifiers: Respiratory failure complication: hypoxia Qualified Code(s): J96.11 - Chronic respiratory failure with hypoxia (4) Essential hypertension Priority: Secondary Status: Chronic Comments: controlled. - Discharge Medications Prescriptions: Iron Polysaccharide Complex [Ferrex 150] 150 mg PO DAILY #30 capsule Pantoprazole Sodium 40 mg PO DAILY #30 tablet. Sulfamethoxazole/Trimeth DS [Bactrim DS] 1 each PO BID 7 Days Home Medications: Albuterol Sulfate [Proair Hfa] 2 puff IH Q4H PRN 10/05/16 [History] Aspirin 81 mg PO DAILY 10/05/16 [History] Cholecalciferol (Vitamin D3) [Vitamin D3] 5,000 unit PO DAILY 10/05/16 [History] Isosorbide MONOnitrate (24 HR) [Imdur] 30 mg PO DAILY 10/05/16 [History] Levothyroxine Sodium [Levoxyl] 150 mcg PO QAM 10/05/16 [History] Metoprolol XL (24 HR) Succ [Toprol Xl] 25 mg PO DAILY 10/05/16 [History] Oxygen 2 l NS CONT 10/19/16 [History] Iron Polysaccharide Complex [Ferrex 150] 150 mg PO DAILY #30 capsule 10/22/16 [ Rx] Pantoprazole Sodium 40 mg PO DAILY #30 tablet. 10/22/16 [Rx] Sulfamethoxazole/Trimeth DS [Bactrim DS] 1 each PO BID 7 Days 10/22/16 [Rx] Allergies/Adverse Reactions: Allergies promethazine Allergy (Verified 09/29/15 13:23) See Comments unknown Procedures/tests Complete & Pending: Procedures Performed prior 72 hours Category Date Time Status EV echocardiogram Routine Y 10/20/16 22:15 Completed Date of admission: 10/19/16 19:47 Primary care physician: Augie Ramirez MD Consults: 10/19/16 19:49 Consult to Gastroenterology [CONS] Routine Consulting Provider: Gastroenterology Lauren Reason for Consult: Hgb 3.9 with melena the last 3 weeks Call Completed: No Anticipated date of discharge: 10/22/16 - Patient Status Disposition: Home, Self-Care Condition: Fair Functional capacity at discharge: uses cane/walker Overall status at discharge: patient is progressing back to baseline - Discharge Instructions Instructions: Anemia (GEN) Follow Up With: Vladimir Mancini MD [Partnered Physician] - 10/27/16 9:00 am Augie Ramirez MD [Primary Care Provider] - (OFFICE WILL CONTACT YOU WITH FOOLOW UP APPOINTMENT) Additional Instructions: REPEAT CBC IN 3 DAYS FOLLOW UP WITH PCP AND PRESIDENT [place] - Diet and Activity Activity: ambulate only with your walker, increase activity as tolerated, resume usual activities as tolerated, wear oxygen at all times Diet: low fat, low cholesterol Hospital course: Ms. Hernandez is a 76 year old female with past medical history of arthritis, asthma, cancer hypertension and probable COPD with chronic hypoxia on supplemental oxygen at home. Patient presents to the ED with complaints of shortness of breath. Patient stated that she has been having dark stools over the past few weeks and initially thought it was related to her heart medication. Patient was initially found to have a low O2 sat of 79% and severe anemia. Her H&H was also very low at 3.9 and 15.1. She also had some lightheadedness and palpitations. No other complaints. Patient was typed and crossed. She received a total of 4 units packed red cells. We will consult with GI who evaluated the patient. EGD was done and revealed a normal esophagus , a large hiatal hernia, gastritis and a nonbleeding gastric ulcer. GI recommended continuing PPI. Patient also initially required BiPAP use. But this was discontinued soon. She is now saturating well on 2 L nasal cannula. Echocardiogram was also done and revealed LVEF of 60-65% with moderate LV diastolic dysfunction and no wall motion abnormalities. CT chest with PE protocol was negative for PE. Patient's H&H at the time of discharge is 7.5 and 27.3. Patient and her family have been explained in detail about the patient's condition and plan of care. They understood and agreed. No unanswered questions. Patient has been explained that she will require a repeat CBC in about 3 days' time. She has also been explained about need to follow up closely with her PCP and also with her senior solutions workflow consultant. Patient understood and agreed. She was also started on a iron polysaccharide complex in the hospital. She is being discharged with prescription of the same. Patient was also found to have a UTI in the hospital. She was given 1 dose of IV Rocephin and is now being discharged on Bactrim double strength. Urine cultures revealed Escherichia coli which was currie sensitive. Patient is now ambulating well and tolerating oral diet well. She seems to be back at her baseline. On the day of discharge patient is awake and alert. Not in any distress. States she feels better and wants to go home. Patient did not have any other acute events or complications during her stay in the hospital. - Time Spent with Patient Total time spent providing and/or coordinating discharge services: Less than 30 minutes - Constitutional Vitals: Temp Pulse Resp BP Pulse Ox 98.0 F 79 16 113/67 92 10/22/16 06:53 10/22/16 06:53 10/22/16 06:53 10/22/16 06:53 10/22/16 06:53 General appearance: Present: cooperative, A&O X 3, pleasant, answers questions appropriately - Head Head exam: Present: atraumatic - ENT ENT exam: Present: mucous membranes moist - Neck Neck exam general surgery: Present: supple - Respiratory Respiratory exam: Present: CTAB. Absent: rhonchi, wheezes - Cardiovascular Cardiovascular exam: Present: RRR, +S1, +S2 - GI/Abdominal GI/Abdominal exam: Present: soft. Absent: guarding, tenderness - Extremities Exam Extremities exam: Present: radial pulses palpable and symetrical. Absent: cyanotic, pedal edema - Neurological Exam Neurological exam: Present: alert, oriented X3, no focal deficits - VTE Documentation of Mechanical Device: Intermittent pneumatic compression device
[2016-10-22] MEDS ORDERED: Iron Polysaccharide Complex 150 MG CAPSULE PO SCH (09:00)
[2016-10-22] MEDS ORDERED: Lidocaine -MPF 2% 5 ML VIAL INFILT ONE (10:29)
[2016-10-22] MEDS ORDERED: *HR* Propofol 200 MG/20 ML VIAL IVP ONE (10:29)
[2016-10-23 08:21] LABS: Tissue Transglutaminase IgA 0 U/mL (0-3)
[2016-10-23 08:40] LABS: Tissue Transglutaminase IgG 1 U/mL (0-5)
== END 2016-10-22 10:30 | disposition home or self-care (01) | DRG 812 ==
LOC: EMEROO 13:10 → 2NNU 13:10 → 3ANU 10-21 19:24
PROVIDERS: ADMIT Registered Nurse; ATTEND Family Medicine
PROC: ENDOEBX (2016-10-20 13:00)

== ENCOUNTER 2019-08-29 18:05 | Observation (INO) ==
[2019-08-29] MEDS ORDERED: Naloxone 0.4 MG/ML INJ IVP PRN (20:43)
[2019-08-30] MEDS ORDERED: Naloxone 0.4 MG/ML INJ IVP PRN (01:27)
[2019-08-30] MEDS ORDERED: NON-FORMULARY MEDICATION 1 EACH EACH (Oxygen 2 L) NS SCH (01:30)
[2019-08-30 02:51] LABS: Basophils % 0.4 %; Hemoglobin 8.1 g/dL (11.5-15.4)
[2019-08-30 02:52] LABS: Eosinophils # 0.1 K/mcL (0.0-0.6); Eosinophils % 1.4 %; Hematocrit 30.3 % (35.3-44.9); Immature Granulocytes % 0.6 % (0-4); Immature Platelets 6.4 % (1.1-6.1); Lymphocytes # 0.6 K/mcL (0.6-4.6); Lymphocytes % 11.2 %; Mean Corpuscular HGB Conc 26.7 g/dL (31.6-35.5); Mean Corpuscular Hemoglobin 19.3 pg (28.0-33.3); Mean Corpuscular Volume 72.1 fL (83.0-100.0); Mean Platelet Volume 10.4 fL (9.4-12.4); Monocytes # 0.6 K/mcL (0.0-1.3); Monocytes % 12.4 %; Neutrophils # 3.8 K/mcL (1.6-8.9); Platelet Count 167 K/mcL (140-400); Red Cell Distribution Width 20.5 % (11.5-14.5); White Blood Count 5.1 K/mcL (4.3-11.1)
[2019-08-30 03:10] LABS: BUN/Creatinine Ratio 15 (6-26); Blood Urea Nitrogen 10 mg/dL (8-23); Calcium 8.6 mg/dL (8.6-10.3); Carbon Dioxide 36 mEq/L (23-29); Chloride 99 mEq/L (98-107); Glucose 240 mg/dL (70-105); Osmolality,Calculated 295 (280-300); Potassium 3.9 mEq/L (3.5-5.1); Sodium 139 mEq/L (136-145); eGFR For African Americans > 60 (> 60); eGFR For Non-African Americans > 60 (> 60)
[2019-08-30 03:28] LABS: Hypochromasia Present (Not Present); Platelet Estimate Normal (Normal)
[2019-08-30] MEDS: predniSONE 1 MG TABLET PO SCH (10:10)
[2019-08-30] MEDS: Furosemide 40 MG TABLET PO SCH (10:11)
[2019-08-30] MEDS: predniSONE 5 MG TABLET PO SCH (10:11)
[2019-08-30] MEDS: Isosorbide MONOnitrate (24 HR) 30 MG TAB.ER.24H PO SCH (10:11)
[2019-08-30] MEDS ORDERED: SODIUM CHLORIDE/NAHCO3/KCL/PEG 4,000 ML SOLN.RECON PO ONE (11:42)
[2019-08-30] MEDS: Pantoprazole 40 MG VIAL IVP SCH (17:18)
[2019-08-31] MEDS: Pantoprazole 40 MG VIAL IVP SCH (05:48)
[2019-08-31] MEDS ORDERED: Lidocaine -MPF 2% 2 ML VIAL ONE (08:29)
[2019-08-31] MEDS ORDERED: Iron Sucrose Complex 200 MG in 0.9 % Sodium Chloride 100 ML IVPB SCH (11:00)
[2019-08-31] MEDS: Isosorbide MONOnitrate (24 HR) 30 MG TAB.ER.24H PO SCH (12:09)
[2019-08-31] MEDS: predniSONE 5 MG TABLET PO SCH (12:10)
[2019-08-31] MEDS: Furosemide 40 MG TABLET PO SCH (12:10)
[2019-08-31] MEDS: predniSONE 1 MG TABLET PO SCH (12:24)
[2019-08-31 12:30] VITALS: BP 105/64
[2019-08-31 14:10] LABS: Hematocrit 31.1 % (35.3-44.9); Hemoglobin 8.3 g/dL (11.5-15.4)
== END 2019-08-31 15:17 | disposition home or self-care (01) ==
LOC: 3ANU → SUATTDRO 20:30
PROVIDERS: ADMIT Internal Medicine; ATTEND Internal Medicine
PROC: ENDOCBX (2019-08-31 08:00)

== ENCOUNTER 2021-03-08 05:28 | Observation (INO) ==
[2021-03-08] MEDS ORDERED: Aspirin 81 MG TAB.CHEW PO ONE (05:35)
[2021-03-08] MEDS ORDERED: 0.9 % Sodium Chloride 500 ML IVC ONE (05:35)
[2021-03-08 06:03] LABS: Basophils % 0.4 %; Eosinophils # 0.1 K/mcL (0.0-0.6); Eosinophils % 1.8 %; Hematocrit 46.9 % (35.3-44.9); Hemoglobin 14.2 g/dL (11.5-15.4); Immature Granulocytes % 0.5 % (0-4); Lymphocytes # 1.7 K/mcL (0.6-4.6); Lymphocytes % 21.2 %; Mean Corpuscular HGB Conc 30.3 g/dL (31.6-35.5); Mean Corpuscular Hemoglobin 26.2 pg (28.0-33.3); Mean Corpuscular Volume 86.4 fL (83.0-100.0); Mean Platelet Volume 11.4 fL (9.4-12.4); Monocytes # 0.8 K/mcL (0.0-1.3); Monocytes % 9.5 %; Neutrophils # 5.3 K/mcL (1.6-8.9); Platelet Count 190 K/mcL (140-400); Red Blood Count 5.43 M/mcL (3.82-4.97); Red Cell Distribution Width 15.7 % (11.5-14.5); Segmented Neutrophils % 66.6 %; White Blood Count 7.9 K/mcL (4.3-11.1)
[2021-03-08 06:33] LABS: Alanine Aminotransferase 9 Units/L (7-52); Albumin 3.7 g/dL (3.5-5.7); Albumin/Globulin Ratio 1.1 (1.1-2.2); Alkaline Phosphatase 55 Units/L (34-104); Aspartate Amino Transferase 14 Units/L (13-39); BUN/Creatinine Ratio 13 (6-26); Bilirubin,Direct 0.1 mg/dL (0.0-0.2); Bilirubin,Indirect 0.4 mg/dL (0.0-1.0); Bilirubin,Total 0.5 mg/dL (0.3-1.0); Blood Urea Nitrogen 11 mg/dL (8-23); Carbon Dioxide 35 mEq/L (23-29); Chloride 100 mEq/L (98-107); Globulin 3.5 g/dL (2.4-3.5); Glucose 164 mg/dL (70-105); Lipase 17 Units/L (11-82); Osmolality,Calculated 295 (280-300); Potassium 4.1 mEq/L (3.5-5.1); Sodium 141 mEq/L (136-145); Total Protein 7.2 g/dL (6.4-8.9); Troponin I < 0.03 ng/mL (< 0.04); eGFR For African Americans > 60 (> 60); eGFR For Non-African Americans > 60 (> 60)
[2021-03-08] MEDS ORDERED: Isovue-370 500 ML BOTTLE IVP ONE (06:43)
[2021-03-08 06:44] LABS: Influenza A PCR Negative (Negative); Influenza B PCR Negative (Negative); Resp. Syncytial Virus PCR Negative (Negative)
[2021-03-08 06:51] LABS: SARS-CoV-2 by PCR (In House) Positive (Negative)
[2021-03-08 06:53] LABS: Bacteria,Urine Few per hpf (None-Few); Bilirubin,Urine Negative (Negative); Blood,Urine Negative (Negative); Clarity,Urine Turbid (Clear); Color,Urine Yellow (Yellow); Glucose,Urine (UA) Normal (Normal); Hyaline Casts,Urine Moderate per lpf (None Seen); Ketones,Urine Negative (Negative); Leukocyte Esterase,Urine Large (Negative); Mucus,Urine Few per lpf (None-Few); Nitrite,Urine Negative (Negative); Protein,Urine 30 mg/dL (Neg-Trace); Specific Gravity,Urine 1.018 (1.010-1.025); Squamous Epithelial Cell,Urine Moderate per hpf (None-Few); Urobilinogen,Urine Normal (Normal); WBC,Urine 50-100 per hpf (0-3)
[2021-03-08] MEDS ORDERED: cefTRIAXone 1,000 MG in 0.9 % Sodium Chloride Mini Bag 100 ML IVPB ONE (07:56)
[2021-03-08] MEDS ORDERED: Melatonin 3 MG TABLET PO PRN (08:15)
[2021-03-08] MEDS ORDERED: Mag Hydrox/Al Hydrox/Simeth 30 ML UDC PO PRN (08:15)
[2021-03-08] MEDS ORDERED: Naloxone 0.4 MG/ML INJ IVP PRN (08:15)
[2021-03-08] MEDS ORDERED: Ondansetron ODT 4 MG TAB.RAPDIS SL PRN (08:15)
[2021-03-08] MEDS ORDERED: Nitroglycerin 0.4 MG TAB.SUBL SL PRN (08:19)
[2021-03-08] MEDS ORDERED: Morphine Sulfate 2 MG/ML SYRINGE IVP PRN (08:19)
[2021-03-08] MEDS: dexAMETHasone 4 MG TABLET PO SCH (09:02)
[2021-03-08 09:04] LABS: Prothrombin Time 11.6 Seconds (9.4-12.1)
[2021-03-08] MEDS ORDERED: Azithromycin 500 MG in 0.9 % Sodium Chloride 250 ML IVPB SCH (10:00)
[2021-03-08] MEDS: Ipratropium 1 PUFF INHALER IH SCH ×4 (13:24→23:34)
[2021-03-08] MEDS ORDERED: Isosorbide MONOnitrate (24 HR) 30 MG TAB.ER.24H PO SCH (21:00)
[2021-03-09 02:48] LABS: Basophils % 0.3 %; Eosinophils % 0.4 %; Hematocrit 42.5 % (35.3-44.9); Hemoglobin 12.7 g/dL (11.5-15.4); Immature Granulocytes % 0.1 % (0-4); Lymphocytes # 0.9 K/mcL (0.6-4.6); Lymphocytes % 12.1 %; Mean Corpuscular HGB Conc 29.9 g/dL (31.6-35.5); Mean Corpuscular Hemoglobin 25.8 pg (28.0-33.3); Mean Corpuscular Volume 86.2 fL (83.0-100.0); Mean Platelet Volume 11.1 fL (9.4-12.4); Monocytes # 0.4 K/mcL (0.0-1.3); Neutrophils # 5.8 K/mcL (1.6-8.9); Platelet Count 186 K/mcL (140-400); Red Blood Count 4.93 M/mcL (3.82-4.97); Red Cell Distribution Width 15.6 % (11.5-14.5); Segmented Neutrophils % 81.1 %; White Blood Count 7.1 K/mcL (4.3-11.1)
[2021-03-09 03:15] LABS: Alanine Aminotransferase 6 Units/L (7-52); Albumin 3.6 g/dL (3.5-5.7); Albumin/Globulin Ratio 1.1 (1.1-2.2); Alkaline Phosphatase 54 Units/L (34-104); Aspartate Amino Transferase 10 Units/L (13-39); BUN/Creatinine Ratio 15 (6-26); Bilirubin,Total 0.4 mg/dL (0.3-1.0); Blood Urea Nitrogen 10 mg/dL (8-23); Calcium 8.9 mg/dL (8.6-10.3); Carbon Dioxide 31 mEq/L (23-29); Chloride 103 mEq/L (98-107); Globulin 3.3 g/dL (2.4-3.5); Glucose 168 mg/dL (70-105); Osmolality,Calculated 293 (280-300); Potassium 4.3 mEq/L (3.5-5.1); Sodium 140 mEq/L (136-145); Total Protein 6.9 g/dL (6.4-8.9); eGFR For African Americans > 60 (> 60); eGFR For Non-African Americans > 60 (> 60)
[2021-03-09] MEDS: Ipratropium 1 PUFF INHALER IH SCH ×3 (04:09→11:41)
[2021-03-09 04:52] VITALS: TEMP 97.8
[2021-03-09] MEDS ORDERED: *HR* Enoxaparin 40 MG/0.4 ML SYRINGE SQ SCH (06:00)
[2021-03-09] MEDS ORDERED: Ascorbic Acid 500 MG TABLET PO SCH (09:00)
[2021-03-09] MEDS ORDERED: Cholecalciferol (D-3) 1,000 UNIT (25MCG) TABLET PO SCH (09:00)
[2021-03-09] MEDS ORDERED: Cyanocobalamin (B-12) 1,000 MCG TABLET PO SCH (09:00)
[2021-03-09] MEDS ORDERED: cefTRIAXone 1,000 MG in Water for inj. (sterile) 10 ML IVP SCH (09:00)
[2021-03-09 10:21] VITALS: BP 126/56; PULSE 92
[2021-03-09] MEDS ORDERED: Azithromycin 250 MG TABLET PO ONE (10:43)
[2021-03-09] MEDS: dexAMETHasone 4 MG TABLET PO SCH (10:53)
[2021-03-09 14:32] VITALS: O2SAT 92
== END 2021-03-09 16:16 | disposition home health service (06) ==
LOC: SUATTDRO → 2NENU 05:28 → EMEROOARM 05:28 → 2NENU 14:38
PROVIDERS: ADMIT Family Medicine; ATTEND Family Medicine